=== PATIENT | female | born 1980 | race Caucasian/White ===

== ENCOUNTER 2021-02-20 15:53 | Emergency (ER) | payer MEDICARE, MEDICAID ==
[~2021-02-20] VITALS: Ht 175.2 cm; Wt 140.0 kg
[~2021-02-20 15:53] MED LIST: AMLO1CAP31; HYDR-34 PO
--- OUTSIDE RECORDS SUMMARY | 2021-02-20 15:58 | XMS REPORT | Clinical Summary ---
Author Author [facility] Organization [facility] Address Unknown Phone Unavailable Care Team Providers Care Auto Camp Attendant Name Role Phone BarakJeff velez PCP Harpal Garcia MD Unavailable Source Comments Some departments are not documenting in the electronic medical record. If you d o not see the information that you expected, contact [facility] of Information in [facility] Information Management department at [phone] for further assistan ce in locating additional records.[facility] Allergies Comments Active Allergy Reactions Severity Noted Date Causes tongue to swell Penicillins SWELLING High 12/20/2008 Medications End Date Status Medication Sig Dispensed Refills Start Date Active amlodipine-benazepril Take 1 Cap by 0 (LOTREL) 10-20 mg per mouth Daily capsule With Breakfast. Active sitaGLIPtin (JANUVIA) 100 Take 100 mg 0 mg Tab tablet by mouth daily. Active lisinopril/hydrochlorothi Take by 0 azide (ZESTORETIC) mouth daily. 20/12.5 mg tablet Active metformin-ER(+) Take 1,000 mg 0 (FORTAMET) 1,000 mg by mouth tablet twice daily. Active propranolol (INDERAL) 20 Take 20 mg by 0 mg tablet mouth twice daily. Active HYDROcodone/acetaminophen Take 1-2 Tabs 40 Tab 0 (NORCO; VICODIN) 5-325 mg by mouth 3 tablet every 4 hours as needed for Pain (Must last 14 days). Max 8 tabs/day Active traMADol (ULTRAM) 50 mg Take 1 Tab by 20 Tab 0 tablet mouth every 4 6-8 hours as needed for Pain. Active Problems Problem Noted Date Postop check 11/02/2012 Overview: Formatting of this note might be differ ent from the original. 10/22/12 Metatarsalgia 10/11/2012 Exostosis 10/11/2012 Surgical History Surgery Date Site/Laterality Comments HX TUBAL LIGATION HX FOOT SURGERY HX FUSION PROCEDURE Medical History Medical History Date Comments HTN (hypertension) Depression DM (diabetes mellitus) (HCC) Back pain Arthritis Fracture Osteoarthritis Rheumatoid arthritis(714.0) Social History Date Tobacco Use Types Packs/Day Years Used Current Every Day Smoker Cigarettes 0.5 10 Smokeless Tobacco: Never Used Comments Alcohol Use Standard Drinks/Week No 0 (1 standard drink = 0.6 o z pure alcohol) Sex Assigned at Date Recorded Not on file Last Filed Vital Signs Reading Time Taken Comments Vital Sign 138/86 11/02/2012 1:17 PM CDT Blood Pressure 94 11/02/2012 1:17 PM CDT Pulse 36.5 C (97.7 F) 10/22/2012 12:09 PM CDT Temperature - - Respiratory Rate 95% 10/22/2012 1:45 PM CDT Oxygen Saturation - - Inhaled Oxygen Concentration 113.4 kg (250 lb) 11/02/2012 1:17 PM CDT Weight 175.3 cm (5' 9") 11/02/2012 1:17 PM CDT Height 36.92 11/02/2012 1:17 PM CDT Body Mass Index Plan of Treatment Health Maintenance Due Date Last Done Comments MEDICARE ANNUAL WELLNESS 1979 VISIT HIV SCREENING 1994 DTAP/TDAP VACCINES (1 - 1997 Tdap) HEPATITIS C SCREENING 1997 PHYSICAL (COMPREHENSIVE) 1997 EXAM CERVICAL CANCER SCREENING 2000 BREAST CANCER SCREENING 2019 INFLUENZA VACCINE 09/30/2020 Results Not on filefrom Last 3 Months Insurance Type Payer Benefit Subscriber ID Effective Phone Address Plan / Dates Group Medicare MEDICARE MEDICARE [id number] 2007-P [phone] [address] [place] [address] [place] [id number] 2012 [address] MEDICAID -Present [address] [place] [id number] Advance Directives Patient Utility Worker Production Explanation Type Date Recorded Advance 12/27/2012 11:39 PM Directive/DPOA Care Teams Start Date End Date Auto Camp Attendant Relationship Specialty 10/22/12 Jeff Jennings DO PCP - [place] [address] [place] [address] 11/02/12 Harpal Garcia MD Surgery, [address] [place] [address]
--- NOTE | 2021-02-20 17:35 | ED Lower Extremity ---
General Chief Complaint: Lower Extremity Stated Complaint: BOTH KNEES SWELLING/PAIN Nursing Triage Note: Patient presents to the ED with c/o bilateral knee swelling and pain. She reports that her symptoms began 3 months ago and she has been unable to get an appointment with an field specialist or her regular healthcare provider. Source: patient History of Present Illness Date Seen by Provider: Feb 20, 2021 Time Seen by Provider: 17:34 Initial Comments 40-year-old obese female presenting with complaints of bilateral knee pain and swelling. She states that initially her left knee started having pain and swelling over 3 months ago and then in the last month her right knee has also started doing this. She called today to see about getting in with Dr. Cline and does not have an appointment until February 28. She had been seen at [facility] for evaluation of this and was evaluated by x-ray. She was told that she had tricompartmental arthritis and advanced osteoarthritis. She has had some relief in the past with Voltaren gel. She has been trying ibuprofen and Tylenol with little improvement. She presented here from [place], Onset: other (More than 3 months) Pain/Injury Location: bilateral knee Method of Injury: unknown Modifying Factors: Improves With Cold Therapy; Worse With Movement Allergies and Home Medications Allergies Uncoded Allergies: NKDA (Allergy, Mild, 09/04/08) Patient Home Medication List Home Medication List Reviewed: Yes Amlodipine Besylate/Benazepril (Lotrel 10-20 Mg Capsule) 1 Each Capsule, (Reported) Entered as Reported by: ASHLEY PONCE on 09/04/082327 Diclofenac Potassium (Diclofenac Potassium) 50 Mg Tablet, 50 MG PO TID PRN for pain Prescribed by: SHARONDA HAGEN on 02/20/211837 Diclofenac Sodium (Voltaren Arthritis Pain) 20 Gm Gel..gram., 4 GM TP QID Prescribed by: SHARONDA HAGEN on 02/20/211837 Hydrocodone Bit/Acetaminophen (Lortab 7.5 Mg) 1 Ea Tablet, 1 EA PO BID Prescribed by: ALEKSANDER ORTIZ on 09/05/08 0053 Hydrocodone/Acetaminophen (Hydrocodone-Acetamin 5-325 mg) 1 Each Tablet, 1 TAB P O HS PRN for PAIN-SEVERE (8-10) Prescribed by: SHARONDA HAGEN on 02/20/211837 Review of Systems Constitutional: No chills, No fever EENTM: no symptoms reported Respiratory: no symptoms reported Cardiovascular: no symptoms reported Gastrointestinal: no symptoms reported Genitourinary: no symptoms reported Musculoskeletal: joint pain (Pain and swelling to bilateral knees left greater than right) Skin: lesions Psychiatric/Neurological: Headache Past Lxjopwf-Waofcf-Xhtbbv Hx Patient Social History Tobacco Use?: Yes Tobacco type used: Cigarettes Smoking Status: Current Everyday Smoker Use of E-Cig and/or Vaping dev: No Substance use?: No Alcohol Use?: No Pt feels they are or have been: No Immunizations Up To Date First/Initial COVID19 Vaccinat: Not currently vaccinated Past Medical History Surgery/Hospitalization HX: DM; Neuropathy, irregular heart beat; depression; high cholesterol; restless leg syndrome. Physical Exam Vital Signs Vital Signs - First Documented 02/20/21 16:21 Temp 36.8 Pulse 119 Resp 20 B/P (MAP) 115/96 (102) Pulse Ox 96 O2 Delivery Room Air Capillary Refill : Less Than 3 Seconds Height, Weight, BMI Height: '" Weight: lbs. oz. kg; 45.00 BMI Method: General Appearance: WD/WN, obese HEENT: PERRL/EOMI, pharynx normal Neck: non-tender, full range of motion, supple, normal inspection Cardiovascular: normal peripheral pulses, regular rate, rhythm Respiratory: chest non-tender, lungs clear, normal breath sounds, no respiratory distress, no accessory muscle use Gastrointestinal: normal bowel sounds, non tender, soft, no pulsatile mass Back: no CVA tenderness Knees: bilateral knee joint effusion, bilateral knee soft tissue tenderness, bilateral knee swelling Neurologic/Tendon: normal sensation, normal motor functions, normal tendon functions Neurologic/Psychiatric: stick inserter II-XII nml as tested, no motor/sensory deficits, alert, oriented x 3 Progress/Results/Core Measures Results/Orders My Orders Orders - SHARONDA HAGEN MD Ketorolac Injection (Toradol Injection) (02/20/21 17:44) Orphenadrine Inj (Ed Only) (Norflex Inje (02/20/21 17:44) Knee 3 View Bilateral (02/20/21 17:44) Fan Bandage (02/20/21 18:27) Vital Signs/I&O 02/20/21 02/20/21 16:21 18:44 Temp 36.8 36.8 Pulse 119 108 Resp 20 20 B/P (MAP) 115/96 (102) 115/96 Pulse Ox 96 96 O2 Delivery Room Air Room Air Blood Pressure Mean: 102 Progress Progress Note #1: Progress Note Ordered x-rays of the bilateral knees to evaluate for arthritis or acute bony abnormality to account for pain, ordered Toradol and Norflex to help with her pain. Progress Note #2: Progress Note On her x-rays she had advanced tricompartmental arthritis with spurring. She has prepatellar effusions bilaterally. Counseled patient on findings and result s. Apply 6 inch roll of Fan bandage to bilateral knees. Prescribed Voltaren gel to help with inflammation and pain. Prescribed Voltaren for oral medication. Stressed importance of keeping appointment with Dr. Cline in gating with orthopedics. In the meantime will prescribe some pain medicine to help her get rest at night. Diagnostic Imaging Diagonstic Imaging: Xray Plain Films/CT/US/NM/MRI: knee Comments [facility] [place] NAME: PADMINI [facility] REC#: [id number] PT STATUS: REG ER : 1980 PHYSICIAN: SHARONDA HAGEN MD ADMIT DATE: 02/20/21/ER FS Signed Date of Exam:02/20/21 KNEE 3 VIEW BILATERAL INDICATION: Knee pain and swelling progressively worsening over the last several months. EXAMINATION: Bilateral knees 02/20/2021 FINDINGS: 3 views of each knee. On the right, there is moderate medial compartment narrowing with mild narrowing laterally. There is associated spurring. There is moderate patellofemoral narrowing and spurring as well. There is a moderate to large suprapatellar joint effusion. No fractures or dislocations. On the left, there is moderate medial joint space narrowing and spurring with mild lateral joint compartment narrowing and spurring. Mild patellofemoral degenerative changes also noted with a large joint effusion. No fractures or dislocations. IMPRESSION: 1. Bilateral tricompartmental degenerative disease. 2. Large bilateral suprapatellar effusions. Dictated by: Dictated on workstation # [id number] Dict: 02/20/21 1808 Trans: 02/20/21 2150 [facility] [id number] Interpreted by: ELIE NUÑEZ MD Electronically signed by: ELIE NUÑEZ MD 02/20/21 298 Reviewed: Reviewed by Me Departure Impression Primary Impression: Osteoarthritis of knees, bilateral Qualified Codes: M17.0 - Bilateral primary osteoarthritis of knee Additional Impression: Suprapatellar effusion of knee Disposition: HOME, SELF-CARE Condition: Stable Departure-Patient Inst. Decision time for Depature: 18:27 Referrals: GUILLERMO CLINE MD NO,LOCAL PHYSICIAN (PCP) Primary Care Physician Patient Instructions: Knee Pain ED, Swollen Joints (DC) Add. Discharge Instructions: Use fan bandage for compression and support. ice and rest your knees to help limit swelling and pain. Continue with Voltaren gel to help with inflammation and pain. Use the anti-inflammatory medicine by mouth to help with pain. You could still take Tylenol or Acetaminophen with this to help with pain. For Severe pain you could use the hydrocodone and make sure you keep appointment with Dr. Cline next week Ultimately you may need MRI of your knees or to see Orthopedics for more definitive care of your knees and arthritis All discharge instructions reviewed with patient and/or family. Voiced understanding. Scripts Hydrocodone/Acetaminophen (Hydrocodone-Acetamin 5-325 mg) 1 Each Tablet 1 TAB PO HS PRN for PAIN-SEVERE (8-10) for 7 Days, #7 TAB 0 Refills Prov: SHARONDA HAGEN MD 02/20/21 Diclofenac Potassium (Diclofenac Potassium) 50 Mg Tablet 50 MG PO TID PRN for pain for 10 Days, #30 TAB 0 Refills Prov: SHARONDA HAGEN MD 02/20/21 Diclofenac Sodium (Voltaren Arthritis Pain) 20 Gm Gel..gram. 4 GM TP QID for knee pain for 10 Days, #300 GM 0 Refills Apply 4 grams to each knee up to 4 times a day for knee pain/swelling Prov: SHARONDA HAGEN MD 02/20/21 SHARONDA HAGEN MD Feb 20, 2021 17:35
[2021-02-20] MEDS ORDERED: KETOROLAC 60 MG/2 ML VIAL IM STA (17:44)
[2021-02-20] MEDS ORDERED: ORPHENADRINE 60 MG/2 ML (NORFLEX) AMP (ED ONLY) IM STA (17:44)
--- NOTE | 2021-02-20 18:07 | Diagnostic Imaging Report ---
INDICATION: Knee pain and swelling progressively worsening over the last several months. EXAMINATION: Bilateral knees 02/20/2021 FINDINGS: 3 views of each knee. On the right, there is moderate medial compartment narrowing with mild narrowing laterally. There is associated spurring. There is moderate patellofemoral narrowing and spurring as well. There is a moderate to large suprapatellar joint effusion. No fractures or dislocations. On the left, there is moderate medial joint space narrowing and spurring with mild lateral joint compartment narrowing and spurring. Mild patellofemoral degenerative changes also noted with a large joint effusion. No fractures or dislocations. IMPRESSION: 1. Bilateral tricompartmental degenerative disease. 2. Large bilateral suprapatellar effusions. Dictated by: Dictated on workstation # [id number]
[2021-02-20] MEDS ORDERED: DICL50TA4 PO (18:38)
[2021-02-20] MEDS ORDERED: DICL20GE TP (18:38)
[2021-02-20] MEDS ORDERED: ACHD5005 PO (18:38)
[2021-02-20 18:44] VITALS: BP 115/96
== END 2021-02-20 18:43 | disposition home or self-care (01) ==
LOC: EDUNIT# 15:53 → ER FS 15:54
DX: M17.0 Bilateral primary osteoarthritis of knee (principal); M25.462 Effusion, left knee; M25.461 Effusion, right knee; E66.9 Obesity, unspecified; E11.9 Type 2 diabetes mellitus without complications; Z68.42 Body mass index [BMI] 45.0-49.9, adult; F17.210 Nicotine dependence, cigarettes, uncomplicated

== ENCOUNTER → 2021-05-02 | Outpatient (CLI) | payer MEDICARE, MEDICAID ==
[~2021-05-02] MED LIST changes: +ACHD5005 PO; +DICL20GE TP; +DICL50TA4 PO
== END ==
LOC: ORTHO 13:09
PROVIDERS: ATTEND Orthopaedic Surgery
DX: M17.0 Bilateral primary osteoarthritis of knee (principal)

== ENCOUNTER → 2021-08-01 | Outpatient (CLI) | payer MEDICARE, MEDICAID | LOC: ORTHO 13:50 | PROVIDERS: ATTEND Orthopaedic Surgery | DX: M17.0 Bilateral primary osteoarthritis of knee (principal) ==

== ENCOUNTER → 2022-02-25 | Outpatient (CLI) | payer MEDICARE, MEDICAID | LOC: ORTHO 13:14 | PROVIDERS: ATTEND Orthopaedic Surgery | DX: M17.0 Bilateral primary osteoarthritis of knee (principal); I10 Essential (primary) hypertension; E11.9 Type 2 diabetes mellitus without complications ==